=== PATIENT | male | born 1955 | race Caucasian/White ===

== ENCOUNTER 2016-11-09 13:43 | Emergency (ER) | payer OTHER, MEDICAID ==
[2016-11-09 13:50] VITALS: TEMP 98.4
--- NOTE | 2016-11-09 14:18 | EDPHY ---
H & P Stated Complaint: cough/body aches Time Seen by Provider: 11/09/16 14:09 HPI/ROS: CHIEF COMPLAINT: Cough HISTORY OF PRESENT ILLNESS: The patient is a 61-year-old man with no significant past medical history who presents to the emergency department requesting antibiotics for what he thinks is pertussis. He states that his was hospitalized a day or 2 ago with asthma and pertussis. Infectious disease recommended that the rest of the family get treated as well. He brought his daughter yesterday and she was started on a Z-Bogdan. He states that he is having intense coughing spells. No vomiting. No fevers but mild chills. REVIEW OF SYSTEMS: Constitutional: denies: chills, fever, recent illness, recent injury EENTM: See HPI Respiratory: denies: cough, shortness of breath Cardiac: denies: chest pain, irregular heart rate, lightheadedness, palpitations Gastrointestinal/Abdominal: denies: abdominal pain, diarrhea, nausea, vomiting, blood streaked stools Genitourinary: denies: dysuria, frequency, hematuria, pain Musculoskeletal: denies: joint pain, muscle pain Skin: denies: lesions, rash, jaundice, bruising Neurological: denies: headache, numbness, paresthesia, tingling, dizziness, weakness Hematologic/Lymphatic: denies: blood clots, easy bleeding, easy bruising Immunologic/allergic: denies: HIV/AIDS, transplant EXAM: GENERAL: Well-appearing, well-nourished and in no acute distress. HEAD: Atraumatic, normocephalic. EYES: Pupils equal round and reactive to light, extraocular movements intact, sclera anicteric, conjunctiva are normal. ENT: Mild pharyngeal erythema, no exudate, tympanic membranes normal, nares patent NECK: Normal range of motion, supple without lymphadenopathy or JVD. LUNGS: Breath sounds clear to auscultation bilaterally and equal. No wheezes rales or rhonchi. HEART: Regular rate and rhythm without murmurs, rubs or gallops. ABDOMEN: Soft, nontender, normoactive bowel sounds. No guarding, no rebound. No masses appreciated. BACK: No CVA tenderness, no spinal tenderness, step-offs or deformities EXTREMITIES: Normal range of motion, no pitting or edema. No clubbing or cyanosis. NEUROLOGICAL: Cranial nerves II through XII grossly intact. Normal speech, normal gait. 5/5 strength, normal movement in all extremities, normal sensation PSYCH: Normal mood, normal affect. SKIN: Warm, dry, normal turgor, no visible rashes or lesions. Source: Patient Exam Limitations: No limitations - Personal History Current Tetanus/Diphtheria Vaccine: Yes - Medical/Surgical History Hx Asthma: No Hx Chronic Respiratory Disease: No Hx Diabetes: No Hx Cardiac Disease: No Hx Renal Disease: No Hx Cirrhosis: No Hx Alcoholism: No Hx HIV/AIDS: No Hx Splenectomy or Spleen Trauma: No Other PMH: Diverticulitis. HTN - Family History Significant Family History: No pertinent family hx - Social History Smoking Status: Never smoked Alcohol Use: Sober Drug Use: None Constitutional: Initial Vital Signs Temperature (C) 36.9 C 11/09/16 13:48 Heart Rate 84 11/09/16 13:48 Respiratory Rate 20 11/09/16 13:48 Blood Pressure 160/103 H 11/09/16 13:48 O2 Sat (%) 96 11/09/16 13:48 O2 Delivery Mode Room Air Allergies/Adverse Reactions: acetaminophen [From Percocet] Allergy (Verified 11/09/16 13:47) hydrocodone bitartrate [From Vicodin] Allergy (Verified 11/09/16 13:47) oxycodone HCl [From Percocet] Allergy (Verified 11/09/16 13:47) Home Medications: Medication Instructions Recorded AZITHROMYCIN [Z-PACK] 250 mg PO DAILY #6 tab 11/09/16 Htn Med 11/09/16 Medical Decision Making ED Course/Re-evaluation: I will start the patient on a Z-Bogdan surgery but is presumed pertussis. He was offered testing but declines. I agree that it is reasonable to simply treat at this point. We discussed indications for returning. Differential Diagnosis: Partial list of the Differential diagnosis considered include but were not limited to; for ptosis, pharyngitis, upper respiratory tract infection, bronchitis and although unlikely based on the history and physical exam, I also considered pneumonia acute coronary disease, abscess. I discussed these differential diagnoses and the plan with the patient as well as the usual and expected course. The patient understands that the diagnosis is provisional and that in medicine we are not always correct and that further workup is often warranted. Usual and customary warnings were given. All of the patient's questions were answered. The patient was instructed to return to the emergency department should the symptoms at all worsen or return, otherwise to followup with the physician as we discussed. Departure - Departure Disposition: Home, Routine, Self-Care Clinical Impression: Cough Condition: Fair Instructions: Azithromycin (By mouth), Pertussis (ED) Referrals: EMEKA VAUGHN [Other] - As per Instructions Prescriptions: AZITHROMYCIN [Z-PACK] 250 mg PO DAILY #6 tab
[2016-11-09 14:35] VITALS: BP 142/101; PULSE 75; RESP 18; O2SAT 95
== END 2016-11-09 14:35 | disposition home or self-care (01) ==
DX: R05 Cough (principal); I10 Essential (primary) hypertension

== ENCOUNTER 2017-04-14 09:55 | Emergency (ER) | payer OTHER, MEDICAID ==
[2017-04-14] MEDS ORDERED: NS 1,000 ML IV ONE (10:17)
--- NOTE | 2017-04-14 10:19 | EDPHY ---
H & P Stated Complaint: abdominal pain x 2 days Time Seen by Provider: 04/14/17 10:09 HPI/ROS: CHIEF COMPLAINT: Lower abdominal pain concerns about diverticulitis HISTORY OF PRESENT ILLNESS: 62-year-old male with prior history of diverticulitis complaining of 2 days of diarrhea, lower abdominal pain, feels similar to his prior history of diverticulitis. No history of abdominal surgeries, no history of intestinal perforation or diverticular abscess. No fever or chills. No nausea or vomiting. No urinary abnormality. No back pain. No flu-like symptoms. No myalgias. No melena or hematochezia. PRIMARY CARE PROVIDER:emerson [facility] REVIEW OF SYSTEMS: A ten point review of systems was performed and is negative with the exception of the items mentioned in the HPI PAST MEDICAL & SURGICAL HISTORY: No pertinent medical or surgical history SOCIAL HISTORY: no alcohol use PHYSICAL EXAM (Prior to examination, patient consented to physical exam, hands were washed and my usual and customary physical exam procedures followed) 1) GENERAL: Well-developed, well-nourished, alert and oriented. Appears to be in no acute distress. 2) HEAD: Normocephalic, atraumatic 3) HEENT: Pupils equal, round, reactive to light bilaterally. Sclera anicteric. Nasopharynx, oropharynx, clear, no lesions. Dry mucous membranes 4) NECK: Full range of motion, no meningeal signs. 5) LUNGS: Clear auscultation bilaterally, no wheezes, no rhonchi, no retractions. 6) HEART: Regular rate and rhythm, no murmur, no heave, no gallop. 7) ABDOMEN: No guarding, tender to palpation left lower quadrant, negative McBurney's, negative Frazier's, negative Rovsing's, negative peritoneal sign, 8) MUSCULOSKELETAL: Moving all extremities, no focal areas of tenderness, no obvious trauma. No peripheral edema or discoloration. 9) BACK: No CVA tenderness, no midline vertebral tenderness, no fluctuance, no step-off, no obvious trauma, no visual or palpable abnormality. 10) SKIN: No rash, no petechiae. 11) Psychiatric: Patient is oriented X 3, there is no agitation. DIFFERENTIAL DIAGNOSIS: My differential diagnosis includes, but is not limited to, acute appendicitis, acute cholecystitis, bowel obstruction, acute pancreatitis, testicular torsion, gastritis and urinary tract infection. The patient understands that this diagnosis is provisional and can never be 100% accurate. This is a partial list of diagnoses considered. These considerations are based on history, physical exam, past history and reassessment. - Personal History Current Tetanus Diphtheria and Acellular Pertussis (TDAP): Yes - Medical/Surgical History Hx Asthma: No Hx Chronic Respiratory Disease: No Hx Diabetes: No Hx Cardiac Disease: No Hx Renal Disease: No Hx Cirrhosis: No Hx Alcoholism: No Hx HIV/AIDS: No Hx Splenectomy or Spleen Trauma: No Other PMH: Diverticulitis. HTN - Social History Smoking Status: Never smoked Constitutional: Initial Vital Signs Temperature (C) 36.6 C 04/14/17 09:57 Heart Rate 58 L 04/14/17 09:57 Respiratory Rate 16 04/14/17 09:57 Blood Pressure 187/117 H 04/14/17 09:57 O2 Sat (%) 94 04/14/17 09:57 O2 Delivery Mode Room Air Allergies/Adverse Reactions: acetaminophen [From Percocet] Allergy (Verified 11/09/16 13:47) hydrocodone bitartrate [From Vicodin] Allergy (Verified 11/09/16 13:47) oxycodone HCl [From Percocet] Allergy (Verified 11/09/16 13:47) Home Medications: Medication Instructions Recorded Ciprofloxacin HCl [Ciprofloxacin] 500 mg PO BID #20 tab 04/14/17 metroNIDAZOLE [Flagyl 500 mg (*)] 500 mg PO TID 10 Days tab 04/14/17 Medical Decision Making - Diagnostics Imaging Results: Imaging Impressions Abdomen CT 04/14/17 10:17 Impression: 1. Mild sigmoid diverticulitis. No free fluid or abscess. 2. No intra-abdominal mass or lymphadenopathy. Findings discussed with Emergency Department physician, Sandrita Perez on , 1204 hours. ED Course/Re-evaluation: 12:02 p.m.: Discussed with patient his CT results showing positive sigmoid diverticulitis no evidence of perforation and/or abscess. At this time he is comfortable, pain is controlled, he is tolerating oral intake. I think the patient can be discharged treated on outpatient basis for his diverticulitis. I do not think that hospitalization is currently indicated. He is able tolerate oral intake. I discussed this with him and he feels comfortable with this plan. Re-examined his abdomen which remained soft, mild tenderness to palpation left lower quadrant. Nonetheless, usual and customary abdominal precautions instructions provided. He feels comfortable being discharged.Care of patient under supervision of secondary supervising physician Dr Heaton . - Data Points Laboratory Results: Laboratory Results 04/14/17 10:04/14/17 10:04/14/17 04/14/17 04/14/17 10: 10: 10:23 WBC 8.51 10^3/uL 10^3/uL (3.80-9.50) RBC 5.22 10^6/uL 10^6/uL (4.40-6.38) Hgb 16.7 g/dL g/dL (13.7-17.5) POC Hgb 17.0 gm/dL gm/dL (13.7-17.5) Hct 47.4 % % (40.0-51.0) POC Hct 50 % % (40-51) MCV 90.8 fL fL (81.5-99.8) MCH 32.0 pg pg (27.9-34.1) MCHC 35.2 g/dL g/dL (32.4-36.7) RDW 13.3 % % (11.5-15.2) Plt Count 219 10^3/uL 10^3/uL (150-400) MPV 9.5 fL fL (8.7-11.7) Neut % (Auto) 73.5 % % (39.3-74.2) Lymph % (Auto) 15.7 % % (15.0-45.0) [place] % (Auto) 7.3 % % (4.5-13.0) Eos % (Auto) 2.6 % % (0.6-7.6) Baso % (Auto) 0.7 % % (0.3-1.7) Nucleat RBC Rel Count 0.0 % % (0.0-0.2) Absolute Neuts (auto) 6.25 10^3/uL 10^3/uL (1.70-6.50) Absolute Lymphs (auto) 1.34 10^3/uL 10^3/uL (1.00-3.00) Absolute Monos (auto) 0.62 10^3/uL 10^3/uL (0.30-0.80) Absolute Eos (auto) 0.22 10^3/uL 10^3/uL (0.03-0.40) Absolute Basos (auto) 0.06 10^3/uL 10^3/uL (0.02-0.10) Absolute Nucleated RBC 0.00 10^3/uL 10^3/uL (0-0.01) Immature Gran % 0.2 % % (0.0-1.1) Immature Gran # 0.02 10^3/uL 10^3/uL (0.00-0.10) POC Sodium 142 mEq/L mEq/L (134-144) Sodium 145 mEq/L H mEq/L (134-144) POC Potassium 3.9 mEq/L mEq/L (3.3-5.0) Potassium 4.2 mEq/L mEq/L (3.5-5.2) POC Chloride 103 mEq/L mEq/L (97-110) Chloride 102 mEq/L mEq/L (97-110) Carbon Dioxide 29 mEq/l mEq/l (22-31) Anion Gap 14 mEq/L mEq/L (8-16) POC BUN 21 mg/dL mg/dL (7-23) BUN 20 mg/dL mg/dL (7-23) Creatinine 1.2 mg/dL mg/dL (0.7-1.3) POC Creatinine 1.2 mg/dL mg/dL (0.7-1.3) Estimated GFR > 60 Glucose 119 mg/dL H mg/dL (70-100) POC Glucose 124 mg/dL H mg/dL (70-100) Calcium 9.4 mg/dL mg/dL (8.5-10.4) Total Bilirubin 0.7 mg/dL mg/dL (0.1-1.4) Conjugated Bilirubin 0.1 mg/dL mg/dL (0.0-0.5) Unconjugated Bilirubin 0.6 mg/dL mg/dL (0.0-1.1) AST 22 IU/L IU/L (17-59) ALT 32 IU/L IU/L (21-72) Alkaline Phosphatase 64 IU/L IU/L (38-126) Total Protein 7.0 g/dL g/dL (6.3-8.2) Albumin 3.9 g/dL g/dL (3.5-5.0) Lipase 40 IU/L IU/L (23-300) Medications Given: Discontinued Medications Sodium Chloride (Ns) 1,000 mls @ 0 mls/hr IV EDNOW ONE; Wide Open PRN Reason: Protocol Stop: 04/14/17 10:18 Last Admin: 04/14/17 10:33 Dose: 1,000 mls Point of Care Test Results: 04/14/17 10:23 POC Sodium 142 POC Potassium 3.9 POC Chloride 103 POC BUN 21 POC Creatinine 1.2 POC Glucose 124 H Departure - Departure Disposition: Home, Routine, Self-Care Clinical Impression: Sigmoid diverticulitis Condition: Good Instructions: Diverticulitis (ED), Diverticulitis Diet (ED) Additional Instructions: Seek immediate medical attention if you develop new or worsening symptoms, if you develop fevers, chills, inability to tolerate oral intake or any other symptoms that concerns you. Referrals: JULY SPEAR [Other] - 1-2 days without fail Get Montero MD [Medical Doctor] - 2-3 days, call for appt. (Dr Montero is a sales administration specialist) Prescriptions: Ciprofloxacin HCl [Ciprofloxacin] 500 mg PO BID #20 tab metroNIDAZOLE [Flagyl 500 mg (*)] 500 mg PO TID 10 Days tab
[2017-04-14 10:35] LABS: % IMMATURE GRANULYOCYTES 0.2 % (0.0-1.1); ABSOLUTE IMMATURE GRANULOCYTES 0.02 10^3/uL (0.00-0.10); ADD DIFF? NO; ADD MORPH? NO; ADD SCAN? NO; ATYPICAL LYMPHOCYTE FLAG 0 (0-99); FRAGMENT RBC FLAG 0 (0-99); HEMATOCRIT 47.4 % (40.0-51.0); HEMOGLOBIN 16.7 g/dL (13.7-17.5); LEFT SHIFT FLG 0 (0-99); LIPEMIA HEMOLYSIS FLAG 90 (0-99); MEAN CELL HEMOGLOBIN CONCENTR. 35.2 g/dL (32.4-36.7); MEAN CELL VOLUME 90.8 fL (81.5-99.8); MEAN PLATELET VOLUME 9.5 fL (8.7-11.7); PLATELET CLUMPS FLAG 0 (0-99); PLATELET COUNT 219 10^3/uL (150-400); RED BLOOD CELL COUNT 5.22 10^6/uL (4.40-6.38); RED CELL DISTRIBUTION WIDTH 13.3 % (11.5-15.2)
[2017-04-14 11:00] LABS: ALANINE AMINOTRANSFERASE 32 IU/L (21-72); ALBUMIN 3.9 g/dL (3.5-5.0); ALKALINE PHOSPHATASE 64 IU/L (38-126); ANION GAP 14 mEq/L (8-16); ASPARTATE AMINOTRANSFERASE 22 IU/L (17-59); BILIRUBIN,TOTAL 0.7 mg/dL (0.1-1.4); BILIRUBIN-CONJUGATED 0.1 mg/dL (0.0-0.5); BILIRUBIN-UNCONJUGATED 0.6 mg/dL (0.0-1.1); CALCIUM 9.4 mg/dL (8.5-10.4); CARBON DIOXIDE 29 mEq/l (22-31); CHLORIDE 102 mEq/L (97-110); CREATININE 1.2 mg/dL (0.7-1.3); GLOMERULAR FILTRATION RATE > 60; GLUCOSE 119 mg/dL (70-100); POTASSIUM 4.2 mEq/L (3.5-5.2); SODIUM 145 mEq/L (134-144)
[2017-04-14] MEDS ORDERED: IOPAMIDOL (ISOVUE-300) 100 ML BTL ONE (11:28)
[2017-04-14 12:29] VITALS: BP 168/113; PULSE 54; RESP 18; TEMP 98.1; O2SAT 96
== END 2017-04-14 12:25 | disposition home or self-care (01) ==
PROC: 3E0337Z Introduction of Electrolytic and Water Balance Substance into Peripheral Vein, Percutaneous Approach (ICD-10-PCS; principal; 2017-04-14)
DX: K57.32 Diverticulitis of large intestine without perforation or abscess without bleeding (principal); I10 Essential (primary) hypertension; E86.9 Volume depletion, unspecified
CPT/HCPCS: 74177; 96360; 99285; Q9967; 82947-QW

== ENCOUNTER 2017-12-22 11:39 | Emergency (ER) | payer OTHER ==
--- NOTE | 2017-12-22 12:14 | EDPHY ---
HPI/HX/ROS/PE/MDM Narrative: CHIEF COMPLAINT: "I think I have diverticulitis" HPI: The patient is a 62 y/o male with a remote history of diverticulitis complaining of persistent mild LLQ abdominal pain for the last 3 days. That episode of diverticulitis required a hospitalization "because I let it go on too long." His current symptoms feel exactly the same as the prior episode. He is still having bowel movements and denies blood in his stool. No fever, vomiting, diarrhea, cough, chest pain, dyspnea, recent illness, or recent trauma. No history of abdominal surgeries. REVIEW OF SYSTEMS: Aside from elements discussed in the HPI, a comprehensive 10-point review of systems was reviewed and is negative. PMH: Diverticulitis 13 years ago requiring hospitalization; hypertension - on medication SOCIAL HISTORY: Retired aircraft engine mechanic overhaul. Lives in [place]. . PHYSICAL EXAM: General:Patient is alert, in no acute distress. ENT:Eyes are normal to inspection. ENT inspection normal. Neck: Normal inspection. Full range of motion. Respiratory:No respiratory distress. Breath sounds normal bilaterally. Cardiovascular: Regular rate and rhythm. Strong peripheral pulses. Normal cap refill. Abdomen:The abdomen has mild LLQ tenderness to palpation. There are no peritoneal signs. Back: Normal to inspection. No tenderness to palpation. Skin: Normal color. No rash. Warm and dry. Extremities: Normal appearance. Full range of motion. Neuro: Oriented x3. Normal motor function. Normal sensory function. ED Course: This is a well-appearing 62 y/o male with a remote history of diverticulitis who presents with a 3-day history of LLQ pain that feels the same as his prior episode of diverticulitis. He has mild LLQ tenderness on exam. Discussed risks and benefits of CT imaging vs. treating with antibiotics and no imaging. The patient has opted for CT scan of his abdomen to evaluate for diverticulitis. Basic labs ordered. CT shows mild sigmoid diverticulitis. Reevaluated patient and discussed findings. Exam remains unchanged. He will be discharged with scripts for Cipro and Flagyl and referral to GI for follow up. Return precautions discussed. He is comfortable with this plan. - Data Points Imaging Results: Imaging Impressions Abdomen CT 12/22/17 12:12 Impression: Mild mid sigmoid diverticulitis without abscess or microperforation. Results called and discussed with Carlos Alberto Heaton MD, at 12/22/2017 13:17 General information for patients regarding this examination can be found at [email or web address]. If you have questions or comments about this report, please contact me at (hospital) or [phone] (cell). Imaging: Discussed imaging studies w/ bilingual call center representative Radiologist, I viewed and interpreted images myself Laboratory Results: Laboratory Results 12/22/17 11:52 12/22/17 12/22/17 12:21 11:52 WBC 9.45 10^3/uL 10^3/uL (3.80-9.50) RBC 5.31 10^6/uL 10^6/uL (4.40-6.38) Hgb 16.2 g/dL g/dL (13.7-17.5) POC Hgb 15.0 gm/dL gm/dL (13.7-17.5) Hct 47.4 % % (40.0-51.0) POC Hct 44 % % (40-51) MCV 89.3 fL fL (81.5-99.8) MCH 30.5 pg pg (27.9-34.1) MCHC 34.2 g/dL g/dL (32.4-36.7) RDW 13.6 % % (11.5-15.2) Plt Count 269 10^3/uL 10^3/uL (150-400) MPV 9.5 fL fL (8.7-11.7) Neut % (Auto) 69.3 % % (39.3-74.2) Lymph % (Auto) 19.7 % % (15.0-45.0) [place] % (Auto) 7.4 % % (4.5-13.0) Eos % (Auto) 2.9 % % (0.6-7.6) Baso % (Auto) 0.4 % % (0.3-1.7) Nucleat RBC Rel Count 0.0 % % (0.0-0.2) Absolute Neuts (auto) 6.55 10^3/uL H 10^3/uL (1.70-6.50) Absolute Lymphs (auto) 1.86 10^3/uL 10^3/uL (1.00-3.00) Absolute Monos (auto) 0.70 10^3/uL 10^3/uL (0.30-0.80) Absolute Eos (auto) 0.27 10^3/uL 10^3/uL (0.03-0.40) Absolute Basos (auto) 0.04 10^3/uL 10^3/uL (0.02-0.10) Absolute Nucleated RBC 0.00 10^3/uL 10^3/uL (0-0.01) Immature Gran % 0.3 % % (0.0-1.1) Immature Gran # 0.03 10^3/uL 10^3/uL (0.00-0.10) POC Sodium 140 mEq/L mEq/L (135-145) POC Potassium 3.4 mEq/L mEq/L (3.3-5.0) POC Chloride 103 mEq/L mEq/L (97-110) POC BUN 23 mg/dL mg/dL (7-23) POC Creatinine 1.2 mg/dL mg/dL (0.7-1.3) POC Glucose 157 mg/dL H mg/dL (70-100) Point of Care Test Results: Chemistry 12/22/17 12:21 POC Sodium 140 mEq/L mEq/L (135-145) POC Potassium 3.4 mEq/L mEq/L (3.3-5.0) POC Chloride 103 mEq/L mEq/L (97-110) POC BUN 23 mg/dL mg/dL (7-23) POC Creatinine 1.2 mg/dL mg/dL (0.7-1.3) POC Glucose 157 mg/dL H mg/dL (70-100) ISTAT H&H 12/22/17 12:21 POC Hgb 15.0 gm/dL gm/dL (13.7-17.5) POC Hct 44 % % (40-51) General Time Seen by Provider: 12/22/17 12:05 Initial Vital Signs: Initial Vital Signs Temperature (C) 36.7 C 12/22/17 11:45 Heart Rate 61 12/22/17 11:45 Respiratory Rate 16 12/22/17 11:45 Blood Pressure 124/93 H 12/22/17 11:45 O2 Sat (%) 94 12/22/17 11:45 O2 Delivery Mode Room Air Allergies/Adverse Reactions: acetaminophen [From Percocet] Allergy (Verified 12/22/17 11:44) hydrocodone bitartrate [From Vicodin] Allergy (Verified 12/22/17 11:44) oxycodone HCl [From Percocet] Allergy (Verified 12/22/17 11:44) Home Medications: Medication Instructions Recorded Ciprofloxacin [Cipro] 500 mg PO BID #14 tab 12/22/17 Nifedipine 12/22/17 metroNIDAZOLE [Flagyl] 500 mg PO TID #21 tab 12/22/17 Departure - Departure Disposition: Home, Routine, Self-Care Clinical Impression: Sigmoid diverticulitis Condition: Good Instructions: Ciprofloxacin (By mouth), Metronidazole (By mouth), Diverticulitis (ED) Additional Instructions: 1. Take Flagyl and Cipro as prescribed for treatment of diverticulitis. Be sure to complete the entire prescription even if you feel improved. 2. Follow up with application development project manager in the next week. 3. Return to the ED for any worsening of condition. Referrals: Crow Nevarez MD [Medical Doctor] - As per Instructions Prescriptions: Ciprofloxacin [Cipro] 500 mg PO BID #14 tab metroNIDAZOLE [Flagyl] 500 mg PO TID #21 tab Report Scribed for: Carlos Alberto Heaton Report Scribed by: Ermelinda Grimes Date of Report: 12/22/17 Time of Report: 12:14 Physician Review and Approval Statement: Portions of this note were transcribed by an ED scribe. I personally performed the history, physical exam, and medical decision making; and confirm the accuracy of the information in the transcribed note.
[2017-12-22 12:19] LABS: PLATELET COUNT 269 10^3/uL (150-400)
[2017-12-22] MEDS ORDERED: IOPAMIDOL (ISOVUE-300) 100 ML BTL ONE (12:47)
[2017-12-22 13:41] VITALS: BP 133/94
== END 2017-12-22 13:42 | disposition home or self-care (01) ==
DX: K57.32 Diverticulitis of large intestine without perforation or abscess without bleeding (principal); I10 Essential (primary) hypertension
CPT/HCPCS: 74177; 99285; Q9967; 82435-PO; 82565-PO; 82947-PO; 84132-PO; 84295-PO; 84520-PO; 85014-PO